=== PATIENT | female | born 1985 | race Caucasian/White ===

== ENCOUNTER → 2016-09-16 | Day surgery (SDC) | payer MEDICAID ==
[2016-09-02 19:51] VITALS: BMI 34.9
[~2016-09-16] MED LIST: BUPIVACAINE 0.25%-EPINEPHRINE 1:200,000 30 ML ONE; BUPIVACAINE LIPOSOME/PF 1.3% 20 ML VIAL INF ONE; CEFOXITIN 1 GM VIAL ONE; DEXAMETHASONE 4 MG/ML VIAL IV ONE; DIBUCAINE OINTMENT 1 OZ TUBE TOP ONE; FENTANYL 100 MCG/2 ML VIAL IV PRN; FENTANYL 100 MCG/2 ML VIAL ONE; GLYCOPYRROLATE 1 MG VIAL IM ONE; HYDROmorphone 1 MG INJECTION IV PRN; HYDROmorphone 2 MG/ML VIAL IM ONE; LABETALOL 20 MG/4 ML SYRINGE IV PRN; Levofloxacin 500 mg/100 ml D5W 500 MG/100 ML RTU IV ONE; MEPERIDINE 25 MG/ML TUBEX IV PRN; MIDAZOLAM 2 MG/2 ML VIAL IV ONE; Metronidazole 500 mg/100 ml 500 MG/100 ML RTU IV ONE; ONDANSETRON HCL 4 MG ODT TAB PO PRN; ONDANSETRON HCL 4 MG/2 ML VIAL IV ONE; ONDANSETRON HCL 4 MG/2 ML VIAL IV PRN; OXYCODONE HCL 5 MG TABLET ONE; PROPOFOL 200 MG/20 ML VIAL IV ONE; hydrALAZINE 20 MG/ML VIAL IV PRN
--- NOTE | 2016-09-16 10:24 | HIM.ANES ---
Anesthesia Evaluation & Plan Diagnoses: OTHER HEMORRHOIDS (09/16/16) Consented Procedure: Hemorrhoidectomy - Focused Review of Systems Now: No Cardiac History: Yes: Hx Hypertension No: Hx Cardiac Disorders HEENT: No: Temporomandibular Joint Disease (TMJ), Other HEENT Problems Hx Other HEENT Problems: SEASONAL ALLERGIES Respiratory: Yes: Hx Asthma, Hx Snoring Gastrointestinal: Yes: Hx Chronic Constipation No: Hx Gastrointestinal Disorders Neurological/Musculoskeletal: Yes: Hx Migraine No: Hx Neurological Disorders Psychological: No Hx Depression, No Hx Mental/Emotional Disorders Endocrine: No: Hx Diet Controlled Diabetes Blood/Autoimmune: No: Hx Blood Transfusions, Hx Anemia, Hx AIDS, Hx Hepatitis (type), Hx Sickle Cell Disease Smoking Status: Heavy tobacco smoker (5 or more cigarettes/day or daily pipe/ cigar) Other Surgical History: Lumpectomy rt brease- April 2016 - Focused Physical Exam NPO since: 129 am Mallampati: Class II Thyromental Distance: Greater than 3 Neck: Full Range of Motion Dental: Normal - no significant findings Cardiovascular/Chest: Normal Respiratory: Lungs clear Any problems with anesthesia, including nausea and vomiting?: No Any relatives with a history of Malignant Hyperthermia?: No Does patient have a history of Malignant Hyperthermia?: No Beta Amita given (if appropriate): N/A Does the patient have a history of Motion Sickness-: No Other: Problem List Problem Status Onset 29 weeks gestation of Acute 39 weeks gestation of Acute Hemorrhoids Acute Nausea and vomiting during Acute PIH ( induced hypertension) Acute care following vaginal delivery Acute headache in third trimester Acute Single live Acute Vaginal delivery Acute Vaginal spotting Acute PT/PTT/INR/ Urine Test Neg (NEGATIVE) 09/16/16 09:20 Allergies Allergy/AdvReac Type Severity Reaction Status Date / Time amoxicillin Allergy Hives* Verified 09/16/16 09:49 lactose Allergy Nausea/Vomi Verified 09/16/16 09:49 ting Penicillins Allergy Hives* Verified 09/16/16 09:49 ABX Allergy See Uncoded 09/16/16 09:49 Comments Home Medications Medication Instructions Recorded Last Taken Type Docusate Sodium [Colace] 200 mg PO HS #30 capsule 09/02/16 09/14/16 08:00 Rx Hydrocortisone [ANUSOL HC 25 mg NH BID PRN #12 supp 09/02/16 09/14/16 08:00 Rx Suppository] Tramadol HCl 50 mg PO Q6 PRN #20 tablet 09/02/16 09/14/16 08:00 Rx 50mg Height and Weight Patient's height 5 ft 6 in Patient's weight 97.976 kg BMI 34.9 Vital Signs Temperature 97.0 F L 09/16/16 09:28 Pulse Rate 105 09/16/16 09:28 Respiratory Rate 16 09/16/16 09:28 Blood Pressure 138/84 09/16/16 09:28 Pulse Oxygen Saturation 97 09/16/16 09:28 METS - Level of Activity: Climbing stairs(1 flight),walking level ground, running short distance - Anesthetic Plan Anesthesia Type: General ASA Class: 2 -: I have examined this patient and reviewed the medical record. The patient has been assessed prior to anesthesia. Risks and benefits of anesthesia and anesthetic technique options have been discussed and all questions answered. The patient accepts the risk and desires me to proceed with the planned anesthetic.
[2016-09-16 12:40] VITALS: TEMP 96.9
--- NOTE | 2016-09-16 13:11 | SC.ANESPOS ---
Post-Anesthesia Note LOC: Fully Awake Post-Anesthesia Assessment: Awake, Returned to Baseline, Hemodynamically Stable , Pain Control Adequate Phase I & II Recovery Complete: Yes Apparent Anesthesia Complication: No : N PACU Discharge Time: 12:25 - Vital Signs Blood Pressure: 117/70 Pulse: 76 Resp Rate: 18 O2 Sat: 95 Temp: 96.9 F - Comments Anesthesia Discharge Time Report Time 12:25
[2016-09-16 13:58] VITALS: BP 142/87; PULSE 78
--- NOTE | 2016-09-20 15:35 | HIMOPRPT ---
DATE OF PROCEDURE: 09/20/16 PREOPERATIVE DIAGNOSIS: External and internal hemorrhoids. POSTOPERATIVE DIAGNOSIS: External and internal hemorrhoids. PROCEDURE: Examination under anesthesia. External and internal hemorrhoidectomy. SURGEON: Tj Sage MD ANESTHESIA: General anesthesia. ANESTHESIOLOGIST: Dr. Sangeetha Porras MD SPECIMEN: Left anterior posterior external and internal hemorrhoids SPONGE COUNT: Correct. PATIENT CONDITION: Stable. ESTIMATED BLOOD LOSS: 5 cc. INDICATIONS: This is a 31 year old female with external and internal hemorrhoids causing pain and bleeding.It was recommended to the patient examination under anesthesia and external and internal hemorrhoidectomy. The indications, benefits and risks associated with the operation were discussed with the patient and the patient's in detail. The risk were discussed with the patient including, but limited to, bleeding, infection, injury to sphincter muscles resultant fecal incontinence, possibly permanent, deep vein thrombosis resultant pulmonary embolism, perioperative cardiac and respiratory morbidity mortality, hemorrhoid recurrence. All questions were answered. Informed consent was obtained FINDINGS: Patient had a small external and internal hemorrhoid on the left lateral/anterior location. No fissures were identified PROCEDURE IN DETAIL: JONATHAN VILLA was taken to the operative suite response from placed in the supine position. General anesthesia were induced. Patient's plain the modified lithotomy position. The perianal and rectal area sterilely prepped and draped in the usual fashion. All meds of the surgical team agreement correct patient correct procedure. The anoderm mucosa was infiltrated local static after aspirating first. The retractor was placed. The left anterior hemorrhoidal plexus was grasped with an Allis and placed on traction and proximal sutures of 3 0 chromic suture were placed. Utilizing the Harmonic scalpel, the hemorrhoidal tissue was removed stayed away from the external and internal sphincter muscles. Running suture of chromic was placed leaving a small opening at the anoderm for drainage. Additional [id number] 3 0 chromic suture was placed. Hemostasis was excellent. Dibucaine and a Gel-Foam was placed. The patient was placed back in supine position. Anesthesia was reversed and JONATHAN VILLA was taken to recovery having tolerated his procedure well.
== END ==
LOC: SDC 09:07
PROVIDERS: ATTEND Surgery
PROC: 06BY0ZC Excision of Hemorrhoidal Plexus, Open Approach (ICD-10-PCS; principal; 2016-09-16 10:25)
DX: K64.8 Other hemorrhoids (principal); I10 Essential (primary) hypertension; J45.909 Unspecified asthma, uncomplicated; G43.909 Migraine, unspecified, not intractable, without status migrainosus; F17.210 Nicotine dependence, cigarettes, uncomplicated; Z79.899 Other long term (current) drug therapy
CPT/HCPCS: 46255; 81025; C9290; J1100; J1170; J1956; J2250; J2405; J3010; J3490; J0694